=== PATIENT | male | born 1985 | race Caucasian/White ===

== ENCOUNTER 2018-07-13 14:42 | Emergency (ER) | payer BC, OTHER ==
[2018-07-13 14:53] VITALS: BP 118/78
--- NOTE | 2018-07-13 14:55 | UC ---
General HPI - HPI Summary HPI Summary: RN notes reviewed - pt states that he banged his rt elbow sometime last week. pt states today a friend at work noticed this area is red and swollen. R elbow pain, redness, swelling. Noticed this am upon awakening. Banged the elbow last week -> superficial laceration (not requiring sutures). since then, no issue. No distal p/d/w. No fever / chills. No prox or distal pain / redness. No sob / cp / palpitations. No GI issues. Has been working hard, commercial electrician with physical work. No other injury noted. Has noted R neck pain swelling approx 4 weeks. No ear pain, sore throat, no cough. Seen by work health clinic, but hasn't improved. No rash. No night sweats, no hemoptysis. Nonsmoker. Last ter immun approx 2004- ([facility] - History of Current Complaint Chief Complaint: UCUpperExtremity Stated Complaint: R ELBOW COMPLAINT Time Seen by Provider: 07/13/18 14:53 Hx Obtained From: Patient Pain Intensity: 6 - Allergy/Home Medications Allergies/Adverse Reactions: Allergies Allergy/AdvReac Type Severity Reaction Status Date / Time Penicillins Allergy Swelling Verified 07/13/18 14:53 Home Medications: Home Medications Ibuprofen 400 mg PO 07/13/18 [History] PMH/Surg Hx/FS Hx/Imm Hx - Additional Past Medical History Additional PMH: see hpi Previously Healthy: Yes - Surgical History Surgical History: None - Family History Known Family History: Positive: Non-Contributory - Social History Alcohol Use: Weekly Substance Use Type: None Smoking Status (MU): Never Smoked Tobacco Review of Systems All Other Systems Reviewed And Are Negative: Yes Constitutional: Positive: Negative Skin: Positive: Negative Eyes: Positive: Negative ENT: Positive: Other - see hpi Respiratory: Positive: Negative Cardiovascular: Positive: Negative Gastrointestinal: Positive: Negative Genitourinary: Positive: Negative Motor: Positive: Other - see hpi Neurovascular: Positive: Other Musculoskeletal: Positive: Other: - see hpi Neurological: Positive: Other - see hpi Psychological: Positive: Negative Is Patient Immunocompromised?: No Physical Exam Triage Information Reviewed: Yes Appearance: Well-Appearing, Well-Nourished Vital Signs: Initial Vital Signs Temp 98.0 F 07/13/18 14:50 Pulse 65 07/13/18 14:50 Resp 18 07/13/18 14:50 BP 118/78 07/13/18 14:50 Pulse Ox 98 07/13/18 14:50 Vital Signs Reviewed: Yes Eye Exam: Normal ENT: Positive: Pharyngeal erythema, TM dull, Other - Retroauricular approx 1.5cmL x 1.5cmW firm adenopathy Lower ant cervical 3.5cmL x 1.2cmW firm irregular adenopathy Neck supple, no meningismus No gross axillarary adenopathy Neck exam: Other - see above ent Neck: Positive: Supple Respiratory Exam: Normal Respiratory: Positive: Chest non-tender, Normal breath sounds, No respiratory distress Cardiovascular Exam: Normal Cardiovascular: Positive: RRR, No Murmur, Pulses Normal, Brisk Capillary Refill Abdominal Exam: Normal Abdomen Description: Positive: Nontender - benign, nontender Musculoskeletal Exam: Other - R elbow redness, swellin - approx 7cm x 10cm warm , fluctuant. Mild tender. Able to straighten but painful. Distal r/u palpable. Distal nvi. No prox redness / swelling / tenderness Musculoskeletal: Positive: Strength Intact, ROM Intact Neurological Exam: Normal Neurological: Positive: Alert Psychological Exam: Normal Skin Exam: Other - see above Course/Dx - Course Course Of Treatment: Xray R elbow - reviewed report with pt. Blood work ordered (see orders) Referral orthopedics. (Dr. Jenkins). 16:20 - d/w Dr. Verdin, his office kindly will see Mr. Barton in the office this week. F/u [facility] today. Sling as needed during the day for comfort. Reviewed coa / tx plan Questions as posed answered to the best of my abilily. - Diagnoses Provider Diagnosis: Head and neck lymphadenopathy, Bursitis of elbow Discharge - Sign-Out/Discharge Documenting (check all that apply): Patient Departure All imaging exams completed and their final reports reviewed: Yes - Discharge Plan Condition: Stable Disposition: HOME Patient Education Materials: Diphtheria/Acellular Pertussis/Tetanus Booster Vaccine (By injection), Elbow Bursitis (ED), Lymphadenopathy (ED) Referrals: [facility] [place] [facility] [Outside] Maged Jenkins MD [Medical Doctor] - No Primary Care Phys,NOPCP [Primary Care Provider] - Dwayne Verdin MD [Medical Doctor] - Additional Instructions: Drink plenty of fluids. Sling during the day (rest your elbow). Follow up: Orthopedic doctor this week. Call the office tomorrow morning to schedule an appointment. [facility] doctor this week - the office will call you. Call them tomorrow afternoon if you have not yet connected. Seek medical attention for any worse or new problems. Follow up with a primary care physician as soon as you are able - for recheck. Also for lymph node swelling. This is very important that you follow up with a primary care physician. Blood work in the lab: cbc (complete blood count), cmp (comprehensive metabolic profile), crp and sed (inflammation tests), lyme. - Billing Disposition and Condition Condition: STABLE Disposition: Home
[2018-07-13] MEDS ORDERED: DOXYcycline CAP(*) 100 MG PO ONE (15:17)
[2018-07-13] MEDS ORDERED: Tetan/Diph/Pertus SYR(Tdap)* 0.5 ML SYR(BOOSTRIX) use SYR IM ONE (15:17)
[2018-07-14 11:31] LABS: ABS Eosinophils 0.2 10^3/ul (0-0.6); ABS Monocytes 0.8 10^3/ul (0-0.8); ABS Neutrophils 7.2 10^3/ul (1.5-7.7); Eosinophil % 1.7 %; Hematocrit 44 % (42-52); Hemoglobin 15.3 g/dL (14.0-18.0); Lymphocyte % 19.9 %; Mean Corpuscular HGB Conc 35 g/dL (31-36); Mean Corpuscular Hemoglobin 32 pg (27-31); Mean Corpuscular Volume 91 fL (80-94); Mean Platelet Volume 8.9 fL (7.4-10.4); Nucleated Red Blood Cells % 0.2; Platelet Count 221 10^3/uL (150-450); Red Blood Count 4.81 10^6 /uL (4.18-5.48); Red Cell Distribution Width 13 % (10.5-15); White Blood Count 10.3 10^3/uL (3.5-10.8)
[2018-07-14 11:40] LABS: Albumin 4.6 g/dL (3.2-5.2); Calcium 9.6 mg/dL (8.6-10.3); Potassium 4.2 mmol/L (3.5-5.0); Total Bilirubin 0.6 mg/dL (0.2-1.0)
[2018-07-14 11:46] LABS: Albumin/Globulin Ratio 1.9 (1-3); BUN/Creatinine Ratio 12.6 (8-20); C Reactive Protein 9.02 mg/L (<8.01); EGFR African American 111.9 (>60); EGFR Non-African American 92.5 (>60); Globulin 2.4 g/dL (2-4)
[2018-07-14 13:09] LABS: Erythrocyte Sed Rate 10 mm/Hr (0-14)
--- NOTE | 2018-07-14 15:00 | UC ---
- Progress Note Progress Note: 07/14/2018 Pt Dx B/L lymphadenopathy. CBC: WNL, CMP: WNL No change Radha Sigala PA-C Course/Dx - Diagnoses Provider Diagnoses: Head and neck lymphadenopathy, Bursitis of elbow Discharge - Sign-Out/Discharge Documenting (check all that apply): Post-Discharge Follow Up All imaging exams completed and their final reports reviewed: Yes - Discharge Plan Condition: Stable Disposition: HOME Prescriptions: DOXYcycline CAP(*) [DOXYcycline 100MG CAP(*)] 100 mg PO BID 14 Days #28 cap Patient Education Materials: Diphtheria/Acellular Pertussis/Tetanus Booster Vaccine (By injection), Elbow Bursitis (ED), Lymphadenopathy (ED) Forms: *Work Release Referrals: [facility] [place] [facility] REFERR[facility] [Outside] Maged Jenkins MD [Medical Doctor] - No Primary Care Phys,NOPCP [Primary Care Provider] - Dwayne Verdin MD [Medical Doctor] - Additional Instructions: Drink plenty of fluids. Sling during the day (rest your elbow). Follow up: Orthopedic doctor this week. Call the office tomorrow morning to schedule an appointment. [facility] doctor this week - the office will call you. Call them tomorrow afternoon if you have not yet connected. Seek medical attention for any worse or new problems. Follow up with a primary care physician as soon as you are able - for recheck. Also for lymph node swelling. This is very important that you follow up with a primary care physician. Blood work in the lab: cbc (complete blood count), cmp (comprehensive metabolic profile), crp and sed (inflammation tests), lyme. Lymph nodes noted today - Right retroauricular (behind the ear) - approx 1.5cm x 1.5cm Right lower anterior cervical chain (neck) - approx 3.5cm x 1.2cm. - Billing Disposition and Condition Condition: STABLE Disposition: Home - Attestation Statements Provider Attestation: I was available for consult. This patient was seen by the JOANA. The patient was not presented to, seen by, or examined by me. -Nitin
== END 2018-07-13 16:50 | disposition home or self-care (01) ==
LOC: UCEAST 14:42
DX: R59.1 Generalized enlarged lymph nodes (principal); M70.31 Other bursitis of elbow, right elbow; Z23 Encounter for immunization; Z88.0 Allergy status to penicillin
CPT/HCPCS: 36415; 80053; 85025; 85652; 86140; 86618; 90471; 90715; 99202; A9270-GY; G0463

== ENCOUNTER 2019-04-11 17:14 | Emergency (ER) | payer BC ==
[2019-04-11 18:59] VITALS: BP 138/70
[2019-04-11 19:46] LABS: Influenza B Molecular POSITIVE (Negative)
--- NOTE | 2019-04-11 20:16 | UC ---
FLU HPI - HPI Summary HPI Summary: 34-year-old male comes in with influenza-like symptoms for about 4 days. Said fevers chills headache clear rhinorrhea bodyaches fatigue. [id number] medicines help some with the symptoms. His girlfriend is at this time so he wants to make sure if he has the flu are not. Is also has some diarrhea. Also has a child at home. - History of Current Complaint Chief Complaint: UCGeneralIllness Stated Complaint: COUGH, CONGESTION, FEVER, DIARRHEA Time Seen by Provider: 04/11/19 19:23 Pain Intensity: 4 - Allergy/Home Medications Allergies/Adverse Reactions: Allergies Allergy/AdvReac Type Severity Reaction Status Date / Time Penicillins Allergy Swelling Verified 04/11/19 19:00 PMH/Surg Hx/FS Hx/Imm Hx Previously Healthy: Yes - Surgical History Surgical History: None - Family History Known Family History: Positive: Non-Contributory - Social History Alcohol Use: Weekly Substance Use Type: None Smoking Status (MU): Never Smoked Tobacco Review of Systems All Other Systems Reviewed And Are Negative: Yes Constitutional: Positive: Fever, Chills, Fatigue, Other - SEE HPI Skin: Positive: Negative Eyes: Positive: Negative ENT: Positive: Nasal Discharge, Sinus Congestion Respiratory: Positive: Negative Cardiovascular: Positive: Negative Gastrointestinal: Positive: Nausea Motor: Positive: Negative Neurovascular: Positive: Negative Musculoskeletal: Positive: Myalgia Neurological: Positive: Headache Psychological: Positive: Negative Is Patient Immunocompromised?: No Physical Exam Triage Information Reviewed: Yes Appearance: No Pain Distress, Well-Nourished, Ill-Appearing - MILD Vital Signs: Initial Vital Signs Temp 98.2 F 04/11/19 18:54 Pulse 88 04/11/19 18:54 Resp 16 04/11/19 18:54 BP 138/70 04/11/19 18:54 Pulse Ox 99 04/11/19 18:54 Vital Signs Reviewed: Yes Eye Exam: Normal Eyes: Positive: Conjunctiva Clear ENT: Positive: Pharynx normal, Nasal drainage, TMs normal Neck: Positive: Supple Respiratory: Positive: Lungs clear, Normal breath sounds, No respiratory distress Cardiovascular: Positive: RRR Musculoskeletal: Positive: Strength Intact, ROM Intact Neurological: Positive: Alert, Muscle Tone Normal Psychological: Positive: Normal Response To Family, Age Appropriate Behavior Skin Exam: Normal Flu Course/Dx - Differential Dx/Diagnosis Provider Diagnosis: Influenza Discharge ED - Sign-Out/Discharge Documenting (check all that apply): Patient Departure All imaging exams completed and their final reports reviewed: No Studies - Discharge Plan Condition: Stable Disposition: HOME Patient Education Materials: Influenza (ED) Referrals: [facility] [place] [place] [Outside] Additional Instructions: FOLLOW UP WITH YOUR DOCTOR IF NOT COMPLETELY IMPROVED. GET REEVALUATED SOONER IF NOT IMPROVING OR WORSE OR ANY QUESTIONS OR CONCERNS. - Billing Disposition and Condition Condition: STABLE Disposition: Home
== END 2019-04-11 20:21 | disposition home or self-care (01) ==
LOC: UCCORT 17:14
DX: J11.1 Influenza due to unidentified influenza virus with other respiratory manifestations (principal); R11.0 Nausea; Z88.0 Allergy status to penicillin
CPT/HCPCS: 99211; G0463